=== PATIENT | male | born 1955 | race Caucasian/White ===

== ENCOUNTER 2017-09-17 17:48 | Emergency (ER) | payer OTHER ==
[2017-09-17 19:49] LABS: BASOPHIL % 0.5 % (0-2); CALCIUM 8.9 mg/dL (8.5-10.1); CHLORIDE SERUM 105 mmol/L (98-107); GFR1 > 60 mL/min; GLUCOSE SERUM 109 mg/dL (74-106); PLATELET COUNT 221 x10^3mcL (130-400); POTASSIUM SERUM 3.9 mmol/L (3.5-5.1); RED CELL DISTRIBUTION WIDTH 13.2 % (11.5-14.5); SODIUM SERUM 141 mmol/L (136-145)
[2017-09-17 19:53] LABS: ALBUMIN 3.4 g/dL (3.4-5.0); ALKALINE PHOSPHATASE 82 U/L (46-116); ALT/SGPT 48 U/L (16-63); AST/SGOT 36 U/L (15-37); BILIRUBIN TOTAL 0.67 mg/dL (0.20-1.00); CHOLESTEROL 164 mg/dL (<200); TOTAL PROTEIN, SERUM 6.9 g/dL (6.4-8.2)
[2017-09-17 20:30] LABS: AMPHETAMINE QUAL UR POSITIVE (NEG <=1000)
[2017-09-17 21:11] VITALS: BP 123/76
== END 2017-09-17 21:11 | disposition home or self-care (01) ==
LOC: ED 17:48
PROVIDERS: Specialist
DX: F10.129 Alcohol abuse with intoxication, unspecified (principal); S09.90XA Unspecified injury of head, initial encounter; R55 Syncope and collapse; X58.XXXA Exposure to other specified factors, initial encounter; Y93.89 Activity, other specified; Y92.89 Other specified places as the place of occurrence of the external cause; Y99.8 Other external cause status
CPT/HCPCS: 83880; G0480

== ENCOUNTER 2018-06-27 00:13 | Emergency (ER) | payer OTHER ==
[2018-06-27 01:45] VITALS: BP 123/76
== END 2018-06-27 01:45 | disposition home or self-care (01) ==
LOC: ED 00:13
DX: S91.012A Laceration without foreign body, left ankle, initial encounter (principal); E11.9 Type 2 diabetes mellitus without complications; G89.29 Other chronic pain; M54.2 Cervicalgia; M54.9 Dorsalgia, unspecified; W25.XXXA Contact with sharp glass, initial encounter; Y93.89 Activity, other specified; Y92.89 Other specified places as the place of occurrence of the external cause; Y99.8 Other external cause status
CPT/HCPCS: Q0092

== ENCOUNTER 2019-11-06 06:47 | Emergency (ER) | payer OTHER ==
[~2019-11-06] VITALS: Ht 180.3 cm; Wt 95.3 kg
[2019-11-06 07:42] VITALS: BP 135/70
== END 2019-11-06 07:42 | disposition home or self-care (01) ==
LOC: ED 06:47
DX: L03.011 Cellulitis of right finger (principal); G89.29 Other chronic pain; E11.9 Type 2 diabetes mellitus without complications